=== PATIENT | male | born 1970 | race Caucasian/White ===

== ENCOUNTER 2016-09-05 06:27 | Emergency (ER) | payer SELFPAY ==
[~2016-09-05] VITALS: Ht 188 cm; Wt 113.4 kg
[~2016-09-05 06:27] MED LIST: AMOXICILLIN 50500 MG PO; AMOXIL500 M1 PO; AMOXIL500 MG PO; AMOXIL875 MG PO; APAP/BUTALBITAL1 TA1 PO; AUGMENTIN 875-1 EACH PO; AZITHROMYCIN250 M1 PO; CEPHALEXIN MON500 MG PO; CORTISPORIN OTI10 M1 OT; FIORICET TABLE1 EACH PO; FLEXERIL10 MG PO; FLEXERIL5 MG PO; HYCODAN 1.5 MG480 ML PO; HYDROCODONE1 TABLET PO; KEFLEX 500MG.500 MG PO; LEVAQUIN500 MG PO; LORTAB 10/500 51 TAB PO; LORTAB 5/500 501 TAB PO; LORTAB 500 MG-11 TAB PO; MEDROL 4MG. DOSE4 MG PO; MOTRIN 400MG.400 MG PO; MOTRIN600 MG PO; NOMEDS XX; PEN-VK500 MG PO; PERCOCET 500 MG1 TAB PO; PHENERGAN 25MG.25 MG PR; PHENERGAN VC +120 M1 PO; PHENERGAN25 M1 PO; PRAVASTATIN 40M40 MG PO; PREDNISONE 10MG10 MG PO; PREDNISONE 20MG20 MG PO; STERAPRED DS10 MG PO; SULFAMETHOXAZOL1 TA6 PO; TESSALON PERLE100 M1 PO; TESSALON PERLE200 MG PO; TRAMADOL 50MG T50 MG PO; TRAZODONE150 MG PO; ULTRACET 325 MG1 TAB PO; ULTRAM 50 MG TA50 MG PO; VICODIN 5/500 T1 TAB PO; VICODIN 7.5/501 EACH PO; XANAX 1MG TABLET1 MG PO; XANAX XR2 MG PO; ZITHROMAX Z-PA250 M2 PO
--- NOTE | 2016-09-05 06:57 | Emergency Room Report ---
History of Present Illness Time Seen by 06Francis Presenting Problem in Triage Pt arrived:Walked Presenting Problem:PT RPTS RIGHT SIDED MIGRAINE X 2 DAYS. PT RPTS NO RELIEF WITH OTC ADVIL MIGRAINE MEDICATION, PT STS "I USUALLY JUST COME HERE AND THEY GIVE ME A TORADOL SHOT AND A PHENERGAN SHOT." PT DENIES CHANGES IN VISION. PT RPTS 3 EPISODES OF VOMITING IN PAST 2 DAYS. PT DENIES TRUAMA TO HEAD. Onset of symptoms date/time:09/03/16/ or onset unknown for:MEDICAL HX UNKNOWN Treatment Prior to Arrival: ADVIL AT 0400 [employer] Provided by:SELF Sepsis Risk Assessment: Temp: 97.8 B/P: 145/91 MAP: 109 Pulse: 80 Resp: 20 Recent fever? N Clinical Suspician of Infection? N Mental Status: 1 - Regular (Normal Baseline) Sepsis Risk:Low Sepsis Risk Have you (or family members/close friends) recently traveled outside the [place]? N If Yes, where/when: Have you had exposure to infectious disease within the past month? N TB? Other? Specify: Source patient, RN notes reviewed, family, old records Exam Limitations no limitations Comment this wm presents with sandoval with hx of similiar sandoval which has not responded to home meds w/o fever/rash/trauma Cardiac Chest Pain Chest pain indicative of cardiac No Timing/Duration this evening Severity moderate ALLERGIES Coded Allergies: aspirin (06/05/16) codeine (06/05/16) naproxen (NA-NAUSEA/VOMITING 06/05/16) propoxyphene (06/05/16) tramadol (06/05/16) Home Medications Reported Medications No Known Home Medications History Medical History General CAD? No Angina: No LA: No Hypertension? Yes Hyperlipidemia? Yes CHF? No DVT? No PE? No COPD? No Asthma? No Anemia? No GERD? No Gastric ulcers? No GI Bleed? No Hernia? No Thyroid Problems? No Hypothyroidism? No CVA? No Seizures? No Diabetes? No Insulin Dependent: No Insulin Pump: No Home FSBS? No Renal Insuffiency? No End Stage Renal Disease? No UTI? No Stones? No BPH? No GB Disease: No Nephritic Syndrome? No Asplenia? No Hepatitis? No Sickle Cell Disease? No Arthritis? No Migraines? Yes Cataracts? No Glaucoma? No MRSA? No HIV? No TB? No Anxiety? No Depression? No Cancer? No More? No Immunization Hx DT/Tetanus 5-10 Years Ago Flu NEVER Pneumonia NEVER Surgical Hx Previous Surgery?Y FACIAL SURGERY Family History Family Hx Diabetes No CAD Yes Hypertension No Hyperlipidemia No Cancer Yes TB No Social History Smoking Hx Smoker: Current Every Day Smoker Tobacco: Yes Type Cigarettes Packs/day 1 1/2 - 2 Packs Alcohol Alcohol: No Drugs none Review of Systems All Other Systems Reviewed and Negative Constitutional denies fever Eyes denies drainage ENT denies: ear pain, epistaxis, throat pain. Respiratory denies cough, denies shortness of breath, denies wheezing Cardiovascular denies chest pain, denies palpitations, denies syncope Gastrointestinal denies abdominal pain, denies diarrhea, denies vomiting Genitourinary denies: dysuria, frequency, hesitancy, hematuria. Musculoskeletal denies back pain, denies joint pain, denies joint swelling, denies neck pain Skin denies rash Psychiatric/Neurological see HPI, headache, denies seizure Physical Exam Vital Signs Vital Signs Date Time Temp Pulse Resp B/P Pulse O2 O2 Flow FiO2 Ox Delivery Rate 09/05 0631 97.8 80 20 145/91 95 - WBC >12,000 or <4,000 or 10% bands? 2 or more SIRS Criteria Met? B/P:145/91 MAP:109 Creatinine >2.0? UA output<0.5ml/kg/hr for 2 hrs? Platelet count >100,000? Lactate >2.0mmol/1? INR >1.2 or PTT > than 60 sec? Evidence of Organ Dysfunction? Provider documented clinical suspician of infection? N Sepsis Criteria Count: 1 Sepsis Risk: Low Sepsis Risk General Appearance no apparent distress Eye Exam - bilateral eye PERRL, bilateral eye EOMI Ear, Nose, Throat normal ENT inspection Neck non-tender Respiratory Status No: respiratory distress. 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 No Departure Departure Time of Disposition 0700 Disposition DC Home or Self Care(routine) Clinical Impression Primary Impression: Headache Qualifiers: Headache type: unspecified Headache chronicity pattern: acute headache Intractability: not intractable Qualified Code: R51 - Headache Condition STABLE Patient Instructions DI for Headache Additional Instructions call pcp for follow up Discharge Counseling Counseled pt/family regarding diagnosis, test results, follow up needs Prescriptions Current Visit Scripts No Known Home Medications ED Critical Care Critical Care No at 0703
[2016-09-05 07:15] VITALS: BP 147/98
== END 2016-09-05 07:16 | disposition home or self-care (01) ==
LOC: ER 06:27
DX: R51 Headache (principal); I10 Essential (primary) hypertension; Z72.0 Tobacco use